=== PATIENT | male | born 1965 | race African-American/Black ===

== ENCOUNTER 2024-04-04 00:50 | Emergency (ER) | payer MEDICAID, OTHER ==
[~2024-04-04] VITALS: Ht 165.1 cm; Wt 70.5 kg
[2024-04-04 01:02] VITALS: BP 149/87; PULSE 80; RESP 17; TEMP 98.5; O2SAT 96
[2024-04-04] MEDS: ACETAMINOPHEN 500 MG TABLET PO ONE (02:24)
[2024-04-04] MEDS: PROPARACAINE HCL 0.5% 15 ML OPHTHALMIC SOLUTION OU ONE (02:24)
[2024-04-04] MEDS ORDERED: NAPH15DR75 OU (03:02)
[2024-04-04] MEDS ORDERED: ACET-66 PO (03:02)
== END 2024-04-04 03:46 | disposition home or self-care (01) ==
LOC: EMS 00:51
DX: H10.9 Unspecified conjunctivitis (principal)
CPT/HCPCS: 99283

== ENCOUNTER 2024-06-25 08:20 | Emergency (ER) | payer MEDICAID ==
[~2024-06-25] VITALS: Ht 165.1 cm; Wt 72.7 kg
[~2024-06-25 08:20] MED LIST: ACET-66 PO; NAPH15DR75 OU
[2024-06-25 08:24] VITALS: BP 167/91; PULSE 77; RESP 20; TEMP 98.1; O2SAT 99
== END 2024-06-25 09:14 | disposition home or self-care (01) ==
LOC: EMS 08:21
DX: Z77.098 Contact with and (suspected) exposure to other hazardous, chiefly nonmedicinal, chemicals (principal)
CPT/HCPCS: 99282; Z7502